=== PATIENT | female | born 1995 | race Caucasian/White ===

== ENCOUNTER 2018-03-25 10:21 | Emergency (ER) | payer OTHER ==
[2018-03-25 11:57] VITALS: BP 109/64
--- NOTE | 2018-03-25 12:00 | ED ---
Esperanza Galeana Gabriel scribed for Elder Shannon MD on 03/25/18 at 1128 . Skin Complaint - HPI Summary HPI Summary: This patient is a 22 year old F presenting to [facility] accompanied by her friend with a chief complaint of a spider bite on her right leg that has been there for 3 weeks. [facility], which she has been taking. The patient rates the pain 7/10 in severity. Patient reports pain. - History of Current Complaint Chief Complaint: EDRashSkinAbscess Time Seen by Provider: 03/25/18 11:18 Stated Complaint: SPIDER BITE ON RT LEG Hx Obtained From: Patient Onset/Duration: Started Weeks Ago - 3, Still Present Timing: Constant Onset Severity: Moderate Current Severity: Moderate Pain Intensity: 7 Pain Scale Used: 0-10 Numeric Skin Location: Leg - right Associated Signs & Symptoms: Negative - fever - Allergy/Home Medications Allergies/Adverse Reactions: Allergies Allergy/AdvReac Type Severity Reaction Status Date / Time No Known Allergies Allergy Verified 03/25/18 11:45 Home Medications: Home Medications NK [No Home Medications Reported] 03/25/18 [History Confirmed 03/25/18] PMH/Surg Hx/FS Hx/Imm Hx Respiratory History: Denies: Hx Chronic Bronchitis, Hx Chronic Obstructive Pulmonary Disease (COPD ), Hx Cystic Fibrosis GI History: Denies: Hx Diverticulosis, Hx Gall Bladder Disease History: Denies: Hx Benign Prostatic Hyperplasia, Hx Chronic Renal Failure Musculoskeletal History: Denies: Hx Bursitis, Hx Congenital Bone Abnormalities Psychiatric History: Denies: Hx Post Traumatic Stress Disorder Infectious Disease History: No Infectious Disease History: Denies: Traveled Outside the [place] in Last 30 Days - Family History Known Family History: Positive: Diabetes Negative: Respiratory Disease, Seizure Disorder - Social History Occupation: Student Lives: Dormitory/Roommates Alcohol Use: Occasionally Hx Substance Use: No Substance Use Type: Reports: None Hx Tobacco Use: No Smoking Status (MU): Never Smoked Tobacco Review of Systems Negative: Fever Positive: Other - pain at bite Positive: Other - spider bite All Other Systems Reviewed And Are Negative: Yes Physical Exam - Summary Physical Exam Summary: VITAL SIGNS: Reviewed. GENERAL: Patient is a well-developed and nourished female who is lying comfortable in the stretcher. Patient is not in any acute respiratory distress. HEAD AND FACE: No signs of trauma. No ecchymosis, hematomas or skull depressions. No sinus tenderness. EYES: PERRLA, EOMI x 2, No injected conjunctiva, no nystagmus. EARS: Hearing grossly intact. Ear canals and tympanic membranes are within normal limits. MOUTH: Oropharynx within normal limits. NECK: Supple, trachea is midline, no adenopathy, no JVD, no carotid bruit, no c- spine tenderness, neck with full ROM. CHEST: Symmetric, no tenderness at palpation LUNGS: Clear to auscultation bilaterally. No wheezing or crackles. CVS: Regular rate and rhythm, S1 and S2 present, no murmurs or gallops appreciated. ABDOMEN: Soft, non-tender. No signs of distention. No rebound no guarding, and no masses palpated. Bowel sounds are normal. EXTREMITIES: FROM in all major joints, no edema, no cyanosis or clubbing. NEURO: Alert and oriented x 3. No acute neurological deficits. Speech is normal and follows commands. SKIN: Dry and warm, Good healing wound in the right calf from a spider bite Triage Information Reviewed: Yes Vital Signs On Initial Exam: Initial Vitals Temp Pulse Resp BP Pulse Ox 98.1 F 82 14 112/66 98 03/25/18 10:26 03/25/18 10:26 03/25/18 10:26 03/25/18 10:26 03/25/18 10:26 Vital Signs Reviewed: Yes Diagnostics - Vital Signs Vital Signs Temp Pulse Resp BP Pulse Ox 03/25/18 10:26 98.1 F 82 14 112/66 98 - Laboratory Lab Statement: Any lab studies that have been ordered have been reviewed, and results considered in the medical decision making process. Course/Dx - Course Assessment/Plan: Patient is a 22-year-old female who presents to the emergency department with a chief complaint of pain around the spider bite. She has had this spider bite for 3 weeks she has taken antibiotics and she has some tenderness around the area. The physical exam the wound is dry intact with good healing. Therefore I recommended shows bacitracin if needed, follow with PCP. I discussed all the findings and test results with the patient. Patient was instructed to return to the emergency room immediately if any of the symptoms return or worsens. Plan of care was discussed with the patient and understands and agrees. All questions were answered at patient satisfaction. There were no further complaints or concerns. Lung exam before discharge: CTA B /L. Good air exchange. No wheezing or crackles heard. CVS: S1 and S2 present. No murmurs appreciated. Patient is alert and oriented x 3. Patient is hemodynamically stable. Patient will be discharged home with follow up PCP in the next 2-3 days - Diagnoses Provider Diagnoses: Healing wound Discharge - Sign-Out/Discharge Documenting (check all that apply): Discharge/Admit/Transfer - Discharge Plan Condition: Stable Disposition: HOME Patient Education Materials: Abrasion (ED) Referrals: [facility] [place] [Primary Care Provider] - 5 Days Additional Instructions: RETURN TO THE ER FOR ANY NEW OR WORSENING SYMPTOMS The documentation as recorded by the Esperanza renteria Gabriel accurately reflects the service I personally performed and the decisions made by Shiva ross Walter, MD.
== END 2018-03-25 11:56 | disposition home or self-care (01) ==
LOC: ED 10:21
DX: T63.301A Toxic effect of unspecified spider venom, accidental (unintentional), initial encounter (principal); Y92.9 Unspecified place or not applicable
CPT/HCPCS: 99282